=== PATIENT | male | born 1985 | race Hispanic/Latino ===

== ENCOUNTER 2024-05-12 19:57 | Emergency (ER) | payer BC, OTHER ==
[~2024-05-12] VITALS: Ht 167.6 cm; Wt 111.1 kg
[2024-05-12 20:05] VITALS: BP 147/81; PULSE 101; RESP 20; TEMP 97.8; O2SAT 100
[2024-05-12] MEDS ORDERED: TOBR5DRO46 OP (20:20)
[2024-05-12] MEDS: TobRAMYCin/DEXAmethASONE OPTH SUSP 2.5 ML BOT OD ONE (20:25)
[2024-05-12] MEDS ORDERED: TobRAMYCin/DEXAmethASONE OPTH SUSP 2.5 ML BOT OD ONE (20:30)
== END 2024-05-12 20:29 | disposition home or self-care (01) ==
LOC: EDH 19:57
DX: S05.01XA Injury of conjunctiva and corneal abrasion without foreign body, right eye, initial encounter (principal); W18.39XA Other fall on same level, initial encounter; Y93.89 Activity, other specified; Y92.89 Other specified places as the place of occurrence of the external cause; Y99.8 Other external cause status

== ENCOUNTER 2024-12-13 11:59 | Emergency (ER) | payer BC ==
[~2024-12-13] VITALS: Ht 167.6 cm; Wt 108.9 kg
[~2024-12-13 11:59] MED LIST: TOBR5DRO46 OP
--- NOTE | 2024-12-13 12:53 | HMCIMG ---
ANKLE COMP 3VWS LT HISTORY: Injury COMPARISON: None TECHNIQUE: 3 images of left ankle were obtained. FINDINGS: There is no acute displaced fracture or dislocation. There is soft tissue swelling. There is calcification noted at the insertion site of the Achilles tendon consistent with enthesopathy. Degenerative changes are seen. IMPRESSION: 1. Findings as described above.
--- NOTE | 2024-12-13 13:02 | ERN ---
General Chief Complaint: Ankle Problem Stated Complaint: SPRAIN RELEASE TO WORK Time Seen by MD: 12:03 Time Seen by Midlevel: 12:03 Source: patient History of Present Illness Initial Comments Patient is a 39-year-old male presenting to the emergency department for work clearance. Patient states he rolled his left ankle multiple days ago. He was not had an x-ray performed but states he has pain with weight-bearing. Denies any other injury. Allergies: Coded Allergies: No Known Allergies (Unverified Allergy, Unknown, 05/12/24) Home Meds Active Scripts Tobramycin/Dexamethasone (Tobradex St Eye Drops) 0.3 %-0.05 % Drops.susp, 2 DROP OP BID for 5 Days, #5 ML Prov:CHARLES ORDAZ 05/12/24 Past Medical History Past Medical History: No Pertinent History Past Surgical History: Appendectomy, Other Surgical History Other: R FOOT PLANTAR FACITIS SX. ROS Dictation CONSTITUTIONAL: Negative except for HPI HEAD/FACE: Negative except for HPI EENT: Negative except for HPI RESPIRATORY: Negative except for HPI GASTROINTESTINAL/ABDOMINAL: Negative except for HPI GENITOURINARY: Negative except for HPI MUSCULOSKELETAL: Negative except for HPI INTEGUMENTARY: Negative except for HPI NEUROLOGICAL/PSYCH: Negative except for HPI HEMATOLOGIC/LYMPHATIC: Negative except for HPI All Systems Negative, Except as noted above. 13 point review of systems assessed and all negative except for above. Physical Exam Physical Exam Dictation Vital Signs reviewed General Appearance: Alert, oriented x 3, no acute distress, well developed, nourished. Head and Face: non-traumatic. Eyes: PERRL, pink conjunctivas, eyelid no trauma, anterior chamber with arcus senilis. Ears: Pinnas intact and no signs of trauma or erythema ear canals clear and no discharge TM no erythema Nose: No discharge, no bleeding. Oropharynx: Mouth normal, tongue pink, pharynx clear,no erythema, tonsils no exudates, no abscesses noted, mucous membrane moist Neck: Supple, non-tender, no thyromegaly, no masses, no JVD, no bruits Breast:Deferred Chest:No tenderness, no crepitus, no paradoxical movement, no retractions Lungs:Clear, well-ventilated, symmetric, no rales, no wheezing, no rhonchi, no stridor, good breath sounds bilaterally Heart: Regular rate, regular rhythm, no murmur, no gallops Vascular: no peripheral edema, Abdomen: Soft, positive bowel sounds, nondistended, no guarding, nontender, no rebound, no masses no hepatomegaly, no splenomegaly, no Ochoa's sign, no hernias. Rectal: Deferred Genital: Deferred Neurological: Normal speech, motor function intact, sensory function intact Musculoskeletal: Neck nontender, full range of motion, back nontender, full range of motion, Extremities:, full range of motion, mild swelling and tenderness to the medial malleolus of the left ankle, sensation intact, normal capillary refill, 2+ DP, PT pulses Skin: Color pink, dry, no turgor, no rash, no lacerations, no abrasions, no contusions. Lymphatic: Deferred MDM MDM: 39-year-old male presenting to the ER with left ankle pain. Patient reports rolling his left ankle several days ago. Pain is worse with weight-bearing. Denies any other injury. On physical examination there is mild tenderness and swelling to the medial malleolus of the left ankle. Range of motion is intact. Sensation is intact. Normal capillary refill. 2+ DP, PT pulses. X-ray of the left ankle does not reveal any acute fracture or dislocation. No need for splint at this time. The patient is stable to return to work. He may take Tylenol and Motrin as needed [id number]. Patient is stable for disch arge Differential diagnosis: Ankle sprain, ankle fracture, ankle dislocation There are no social concerns with this patient. Prescription drug management Prescriptions will include: None Medical management and examination interpretation discussions were had by me with other qualified healthcare professionals as indicated for the patient's care. ED Course Orders Procedure Category Date Status Time Ankle Comp 3vws Lt RAD 12/13/24 Resulted 12:13 Vital Signs Date Time Temp Pulse Resp B/P (MAP) Pulse Ox O2 Delivery O2 Flow Rate FiO2 12/13/24 13:23 98.1 80 17 127/85 99 Room Air* 0 21 12/13/24 12:13 98.1 89 17 134/88 99 Room Air* 0 21 12/13/24 12:13 98.1 89 17 134/88 99 Room Air 0 DX & DISP Disposition: Discharge Departure Impression: Primary Impression: Left ankle sprain Condition: Stable Additional Instructions: Your left ankle x-ray does not show any evidence of an acute fracture or dislocation. You may take Tylenol and Motrin as needed for pain. You are cleared to return to work. Follow up with your primary care doctor in 2-3 days for repeat evaluation. Return to the ER for any new or worsening symptoms Referrals: SELF,REFERRAL (PCP) Time of Disposition: 13:01 I have reviewed the case, and I agree with, Diagnosis and Plan I performed the substantive portion of the visit. I have reviewed and personally made and approve the management plan that is documented in the note by myself or the JIMMY. I acknowledge for responsibility for the patient's management plan. CHARLES ORDAZ Dec 13, 2024 13:02 FARRUKH VAZ DO Dec 13, 2024 17:39
[2024-12-13 13:23] VITALS: BP 127/85; PULSE 80; RESP 17; TEMP 98.1; O2SAT 99
== END 2024-12-13 13:23 | disposition home or self-care (01) ==
LOC: EDH 11:59
DX: S93.492A Sprain of other ligament of left ankle, initial encounter (principal); Z90.49 Acquired absence of other specified parts of digestive tract; Z79.899 Other long term (current) drug therapy; Z98.890 Other specified postprocedural states; X58.XXXA Exposure to other specified factors, initial encounter; Y93.89 Activity, other specified; Y92.89 Other specified places as the place of occurrence of the external cause; Y99.8 Other external cause status
CPT/HCPCS: 73610; 99283